=== PATIENT | female | born 1985 | race American Indian/Alaskan Native ===

== ENCOUNTER 2018-07-30 23:55 | Emergency (ER) | payer MEDICAID, OTHER ==
[2018-07-31] MEDS ORDERED: KEPPRA PO ONE (04:18)
[2018-07-31] MEDS ORDERED: NAPROSYN PO ONE (04:18)
--- NOTE | 2018-07-31 04:23 | Emergency Department Report ---
ED Seizure HPI - General Chief Complaint: Seizure Stated Complaint: NV Time Seen by Provider: 07/31/18 04:08 Source: patient Mode of arrival: Ambulatory Limitations: No Limitations - History of Present Illness Initial Comments: Patient is 33 years old female with history of seizure. Patient presented to the ER after one episode of generalized tonic colonic seizure. Patient stated that she is out of her Keppra for the last 2 month. Patient denied any injury. Patient also denied any fever, cough, congestion, urinary symptom or abdominal pain. MD Complaint: seizure -: hour(s) Description of Episode: loss of consciousness, tonic-clonic movement, bladder incontinence, post-event confusion Witnessed:: Yes Trauma: No Seizure History: known seizure disorder Place: street/outdoors Possible Precipitating Event: none Associated Symptoms: denies other symptoms - Related Data Previous Rx's Medication Instructions Recorded Last Taken Type Oxycodone HCl/Acetaminophen 1 each PO Q6HR PRN #10 tablet 02/02/16 Unknown Rx [Percocet 7.5/325 mg] Allergies Allergy/AdvReac Type Severity Reaction Status Date / Time No Known Allergies Allergy Verified 02/02/16 00:16 ED Review of Systems ROS: Stated complaint: NV Other details as noted in HPI Comment: All other systems reviewed and negative Constitutional: denies: chills, fever Cardiovascular: denies: chest pain, palpitations Gastrointestinal: denies: abdominal pain, nausea, vomiting, diarrhea, constipation, hematemesis, hematochezia Musculoskeletal: denies: back pain Neurological: denies: headache, weakness, numbness, paresthesias, confusion, abnormal gait Psychiatric: denies: depression ED Past Medical Hx - Past Medical History Hx Seizures: Yes - Surgical History Additional Surgical History: plates and pins to feet - Social History Smoking Status: Former Smoker Substance Use Type: None - Medications Home Medications: Home Medications Medication Instructions Recorded Confirmed Last Taken Type Oxycodone HCl/Acetaminophen 1 each PO Q6HR PRN #10 tablet 02/02/16 Unknown Rx [Percocet 7.5/325 mg] ED Physical Exam - General Limitations: No Limitations General appearance: alert, in no apparent distress - Head Head exam: Present: atraumatic, normocephalic, normal inspection - Eye Eye exam: Present: normal appearance, PERRL, EOMI - ENT ENT exam: Present: normal exam, normal orophraynx, mucous membranes moist - Neck Neck exam: Present: normal inspection, full ROM. Absent: tenderness, meningismus, lymphadenopathy, thyromegaly - Respiratory Respiratory exam: Present: normal lung sounds bilaterally. Absent: respiratory distress, wheezes, rales, rhonchi, chest wall tenderness, accessory muscle use, decreased breath sounds, prolonged expiratory - Cardiovascular Cardiovascular Exam: Present: regular rate, normal rhythm, normal heart sounds - GI/Abdominal GI/Abdominal exam: Present: soft, normal bowel sounds. Absent: distended, tenderness, guarding, rebound, rigid, mass, bruit, pulsatile mass, hernia - Extremities Exam Extremities exam: Present: normal inspection, full ROM, normal capillary refill. Absent: tenderness, pedal edema, calf tenderness - Back Exam Back exam: Present: normal inspection, full ROM - Neurological Exam Neurological exam: Present: alert, oriented X3, CN II-XII intact, normal gait, reflexes normal - Skin Skin exam: Present: warm, intact, normal color ED Course Vital Signs 07/31/18 07/31/18 00:31 04:42 Temperature 98.0 F 98.2 F Pulse Rate 89 72 Respiratory 18 18 Rate Blood Pressure 122/80 Blood Pressure 150/89 [Left] O2 Sat by Pulse 100 100 Oximetry ED Medical Decision Making - Lab Data Result diagrams: 07/31/18 04:32 07/31/18 04:32 - Medical Decision Making Patient is 33 years old female with history of seizure. Patient presented to the ER after one episode of generalized tonic colonic seizure. Patient stated that she is out of her Keppra for the last 2 month. Patient denied any injury. Patient also denied any fever, cough, congestion, urinary symptom or abdominal pain. No seizure activity observed in the emergency room. Patient received Keppra 1 g in the ER. Labs reviewed and is unremarkable. I prescribed patient Keppra and advised her to follow up with her neurologist in the next 2-3 days. I also advised her to return to the ER if her symptoms are not improved. Critical care attestation.: If time is entered above; I have spent that time in minutes in the direct care of this critically ill patient, excluding procedure time. ED Disposition Clinical Impression: Seizure Disposition: DC-01 TO HOME OR SELFCARE Is pt being admited?: No Condition: Stable Instructions: Recurrent Seizures Adult (ED) Referrals: KELLY ULLOA [Staff Physician] - 3-5 Days
[2018-07-31 04:50] VITALS: BP 150/89
[2018-07-31] MEDS ORDERED: TYLENOL PO ONE (04:55)
[2018-07-31] MEDS ORDERED: TYLENOL ONE (04:56)
[2018-07-31 05:02] LABS: Basophils # (Auto) 0.1 K/mm3 (0.0-0.1); Eosinophils # (Auto) 0.6 K/mm3 (0.0-0.4); Eosinophils % (Auto) 8.8 % (0.0-4.3); Hematocrit 38.1 % (30.3-42.9); Hemoglobin 12.3 gm/dl (10.1-14.3); Lymphocytes # (Auto) 2.4 K/mm3 (1.2-5.4); Lymphocytes % (Auto) 33.8 % (13.4-35.0); Mean Corpuscular HGB Conc 32 % (30-34); Mean Corpuscular Volume 90 fl (79-97); Monocytes # (Auto) 0.5 K/mm3 (0.0-0.8); Monocytes % (Auto) 7.1 % (0.0-7.3); Platelet Count 223 K/mm3 (140-440); Red Blood Count 4.26 M/mm3 (3.65-5.03); Red Cell Distribution Width 12.6 % (13.2-15.2)
[2018-07-31 05:15] LABS: Alanine Aminotransferase 11 units/L (7-56); Albumin 3.7 g/dL (3.9-5); BUN/Creatinine Ratio 10; Bilirubin,Direct < 0.2 mg/dL (0-0.2); Blood Urea Nitrogen 8 mg/dL (7-17); Calcium 8.2 mg/dL (8.4-10.2); Hemolysis Index 7
== END 2018-07-31 06:24 | disposition home or self-care (01) ==
LOC: ED 23:55
DX: G40.909 Epilepsy, unspecified, not intractable, without status epilepticus (principal); Z87.891 Personal history of nicotine dependence
CPT/HCPCS: 36415; 80048; 80076; 84703; 85025; 99284